=== PATIENT | male | born 1965 | race Caucasian/White ===

== ENCOUNTER 2021-09-10 15:10 | Emergency (ER) | payer OTHER ==
[~2021-09-10 15:10] MED LIST: ALBUTEROL0.63 MG/3 INH; ASPIR-LOW81 MG PO; CARVEDILOL3.125 MG PO; ENTRESTO 24 MG1 EACH PO; FUROSEMIDE40 MG PO; IBUPROFEN800 MG PO; LASIX40 MG PO; OMEPRAZOLE40 MG PO; OMNICEF 300 MG300 MG PO; PREDNISONE10 M1 PO; SYMBICORT 160-1 INHA INH; VENTOLIN HFA 66.7 GM INH; ZESTORETIC 20-1 EACH PO; ZITHROMAX500 MG PO
[2021-09-10] MEDS ORDERED: IBUPROFEN800 MG PO (18:01)
== END 2021-09-10 18:14 | disposition home or self-care (01) ==
LOC: ER1 15:10
DX: S16.1XXA Strain of muscle, fascia and tendon at neck level, initial encounter (principal); F17.210 Nicotine dependence, cigarettes, uncomplicated; I11.0 Hypertensive heart disease with heart failure; I50.9 Heart failure, unspecified; V49.50XA Passenger injured in collision with unspecified motor vehicles in traffic accident, initial encounter; Y92.410 Unspecified street and highway as the place of occurrence of the external cause
CPT/HCPCS: 70450; 72125; 72128; 72131; 99284